=== PATIENT | female | born 1965 | race Caucasian/White ===

== ENCOUNTER 2021-01-04 09:02 | Day surgery (SDC) | payer OTHER ==
[2020-12-31 14:21] VITALS: BMI 31.1
[~2021-01-04 09:02] MED LIST: DEXAMETHASONE SOD PHOSPHATE 4 MG/ML 1 ML VIAL IV ONE; HYDROmorphone 0.5 MG/0.5 ML SYRINGE IVP PRN; ONDANSETRON 4 MG/2 ML VIAL IVP ONE
[2021-01-04 09:27] VITALS: RESP 16; TEMP 98.7
[2021-01-04] MEDS: LACTATED RINGERS 1,000 ML IV SCH ×2 (09:35→10:14)
[2021-01-04] MEDS ORDERED: MIDAZOLAM 2 MG/2 ML VIAL IVP ONE (10:09)
[2021-01-04] MEDS ORDERED: LIDOCAINE 1% INJ 10MG/ML (20 ML MDV) ONE (10:17)
[2021-01-04] MEDS ORDERED: PROPOFOL 10 MG/ML 20 ML VIAL IV ONE (10:17)
--- NOTE | 2021-01-04 10:20 | P.GSHP ---
History of Present Illness H&P Date: 01/04/21 Chief Complaint: Positive cologuard 55-year-old female here today for colonoscopy. She has not had 1 previously. Recent stool cologuard test positive. Family history of colon cancer in a grandparent. Doses a small amount of bright red blood with wiping occasionally that she thinks is related to hemorrhoids. Past Medical History Past Medical History: GERD/Reflux Additional Past Medical History / Comment(s): seasonal allergies. pos. cologard. anticardiolipin antibody syndrome during was placed on blood thinners during History of Any Multi-Drug Resistant Organisms: None Reported Past Surgical History: Adenoidectomy, Tonsillectomy, Uterine Ablation Additional Past Surgical History / Comment(s): otoplasty,oral surgery Past Anesthesia/Blood Transfusion Reactions: Family History of Problems w/ Anesthesia, Motion Sickness Additional Past Anesthesia/Blood Transfusion Reaction / Comment(s): mother ponv Smoking Status: Current every day smoker Medications and Allergies Home Medications Medication Instructions Recorded Confirmed Type Albuterol Inhaler [Ventolin Hfa 1 puff INHALATION DAILY PRN 12/31/20 01/04/21 History Inhaler] Albuterol Nebulized [Ventolin 2.5 mg INHALATION BID PRN 12/31/20 01/04/21 History Nebulized] Cetirizine HCl [Zyrtec] 10 mg PO DAILY 12/31/20 01/04/21 History Lansoprazole [Prevacid] 30 mg PO DAILY 12/31/20 01/04/21 History Omeprazole 20 mg PO DAILY 12/31/20 01/04/21 History Allergies Allergy/AdvReac Type Severity Reaction Status Date / Time diazepam [From Valium] Allergy Anaphylaxis Verified 01/04/21 09:20 moxifloxacin [From Avelox] Allergy Anaphylaxis Verified 01/04/21 09:20 erythromycin base AdvReac Diarrhea Verified 01/04/21 09:20 Surgical - Exam Vital Signs Temp Pulse Resp BP Pulse Ox 98.7 F 98 16 120/67 94 L 01/04/21 09:25 01/04/21 09:25 01/04/21 09:25 01/04/21 09:25 01/04/21 09:25 Physical exam: General: Well-developed, well-nourished HEENT: Normocephalic, sclerae nonicteric Abdomen: Nontender, nondistended Extremities: No edema Neuro: Alert and oriented Assessment and Plan (1) Positive colorectal cancer screening using Cologuard test Narrative/Plan: Will proceed with colonoscopy Current Visit: Yes Status: Acute Code(s): R19.5 - OTHER FECAL ABNORMALITIES SNOMED Code(s): 891030752
--- NOTE | 2021-01-04 10:47 | P.PCN ---
Date of Procedure: 01/04/21 Procedure(s) Performed: PREOPERATIVE DIAGNOSIS: Positive cologuard POSTOPERATIVE DIAGNOSIS: Rectal polyp 2 PROCEDURE: Colonoscopy with snare polypectomy ANESTHESIA: MAC SURGEON: Lokesh Miranda M.D. SPECIMENS: Rectal polyp 2 ENDOSCOPIC PROCEDURE: The patient was placed on the endoscopy table in the left decubitus position. The Olympus colonoscope was inserted into the anus and passed under direct visualization to the base of the cecum. The appendiceal orifice was visualized. From that point the scope was slowly withdrawn inspecting all surfaces carefully. There were no neoplastic inflammatory or polypoid lesions throughout the cecum, ascending, transverse, descending, and sigmoid colon. In the rectum 2 small polyps were seen both removed using the snare with cautery technique. The larger polyp was more distal approximately 3- 4 cm from the dentate line. The smaller polyp was at 10 cm. No diverticulosis was seen. Digital rectal examination was normal. The patient was taken to the recovery room in stable condition per anesthesia guidelines. RECOMMENDATIONS: Await biopsy results. Anticipate follow-up colonoscopy 3-5 years.
[2021-01-04 11:11] VITALS: BP 104/75; PULSE 95
== END 2021-01-04 11:35 | disposition home or self-care (01) ==
LOC: ORWHC2ENDO 09:02
PROVIDERS: ATTEND Surgery
DX: D12.8 Benign neoplasm of rectum (principal); K21.9 Gastro-esophageal reflux disease without esophagitis; Z80.0 Family history of malignant neoplasm of digestive organs; D68.61 Antiphospholipid syndrome; Z98.890 Other specified postprocedural states; F17.210 Nicotine dependence, cigarettes, uncomplicated; Z79.899 Other long term (current) drug therapy; Z88.1 Allergy status to other antibiotic agents; Z88.8 Allergy status to other drugs, medicaments and biological substances; R00.2 Palpitations; J44.9 Chronic obstructive pulmonary disease, unspecified
CPT/HCPCS: 81025; 88305; 45385; J2250; J2405; J2001; J2704

== ENCOUNTER → 2021-06-17 | Outpatient (CLI) | payer OTHER ==
--- NOTE | 2021-06-17 10:44 | XR ---
EXAMINATION TYPE: XR chest 2V DATE OF EXAM: 06/17/2021 COMPARISON: NONE HISTORY: Cough for years. Tobacco use. TECHNIQUE: Frontal and lateral views of the chest are obtained. FINDINGS: There is no focal air space opacity, pleural effusion, or pneumothorax seen. The cardiac silhouette size is within normal limits. The osseous structures are intact. IMPRESSION: No acute process.
--- NOTE | 2021-06-21 14:04 | MM ---
Reason for exam: screening (asymptomatic). History: Patient is postmenopausal. Family history of breast cancer in mother at age 63. Took hormonal contraceptives for 8 years. Physical Findings: A clinical breast exam by your physician is recommended on an annual basis and results should be correlated with mammographic findings. MG 3D Screening Mammo W/Cad Bilateral CC and MLO view(s) were taken. No prior studies available for comparison. The breast tissue is heterogeneously dense. This may lower the sensitivity of mammography. Finding: There is a 7 mm obscured oval mass located 7 cm from the nipple in the outer quadrant, middle position of the left breast MLO 23/. ASSESSMENT: Incomplete: need additional imaging evaluation, BI-RAD 0 RECOMMENDATION: Special view mammogram and ultrasound of the left breast. [facility] will attempt to contact patient to return for supplemental views and ultrasound.
== END | disposition home or self-care (01) ==
LOC: RADMAMWWP 09:50
PROVIDERS: ATTEND Family Medicine
DX: Z12.31 Encounter for screening mammogram for malignant neoplasm of breast (principal); R05.9 Cough, unspecified; Z78.0 Asymptomatic menopausal state; Z80.3 Family history of malignant neoplasm of breast; Z72.0 Tobacco use
CPT/HCPCS: 71046; 77063; 77067

== ENCOUNTER → 2021-06-24 | Outpatient (CLI) | payer OTHER ==
--- NOTE | 2021-06-24 14:33 | MM ---
Reason for exam: additional evaluation requested from abnormal screening. Last mammogram was performed less than 1 month ago. History: Patient is postmenopausal. Family history of breast cancer in mother at age 63. Took hormonal contraceptives for 8 years. Physical Findings: A clinical breast exam by your physician is recommended on an annual basis and results should be correlated with mammographic findings. MG 3D Work Up W/Cad LT Spot compression CC, spot compression MLO, ML, and XCCL view(s) were taken of the left breast. Prior study comparison: June 17, 2021, bilateral MG 3d screening mammo w/cad. Finding: There is a 8 x 4 mm obscured oval mass located 6 cm from the nipple in the slight upper outer quadrant of the left breast, persists on additional views. ASSESSMENT: Incomplete: need additional imaging evaluation, BI-RAD 0 RECOMMENDATION: Ultrasound of the left breast.
--- NOTE | 2021-06-24 14:35 | USB ---
Reason for exam: additional evaluation requested from abnormal screening. History: Patient is postmenopausal. Family history of breast cancer in mother at age 63. Took hormonal contraceptives for 8 years. Physical Findings: A clinical breast exam by your physician is recommended on an annual basis and results should be correlated with mammographic findings. US Breast Workup Limited LT Technologist: Anali Vang Left limited breast ultrasound including focal area of concern, retroareolar and axilla demonstrates three oval lesions too small to characterize measuring 0.5 x 0.5 x 0.3cm at 2 o'clock, 4cm from nipple, 0.5 x 0.5 x 0.3cm at 3 o'clock, 6cm from nipple and 0.4 x 0.4 x 0.4cm at 3 o'clock, 6cm from nipple. ASSESSMENT: Probably benign, BI-RAD 3 RECOMMENDATION: Follow-up diagnostic mammogram and ultrasound of the left breast in 6 months.
== END | disposition home or self-care (01) ==
LOC: RADMAMWWP 07:00
PROVIDERS: ATTEND Family Medicine
DX: R92.8 Other abnormal and inconclusive findings on diagnostic imaging of breast (principal); Z78.0 Asymptomatic menopausal state; Z80.3 Family history of malignant neoplasm of breast
CPT/HCPCS: 77061; 77065

== ENCOUNTER → 2021-12-30 | Outpatient (CLI) | payer OTHER ==
--- NOTE | 2021-12-30 13:59 | USB ---
Reason for Exam: Follow-up at short interval from prior study. Patient History: Menarche at age 14. First Full-Term at age 30. Postmenopausal. Patient used Hormonal Contraceptives for 8 years. Mother had breast cancer, age 63. Risk Values: Amparo 5 year model risk: 2.2%. NCI Lifetime model risk: 15.8%. Technique: Method: Targeted. Prior Study Comparison: 06/17/2021 Bilateral Screening Mammogram, [facility]. 06/24/2021 Left Diagnostic Mammogram, [facility]. Findings: The upper outer quadrant of the left breast, the axilla of the left breast and the retroareolar of the left breast were scanned. There are couple of tiny stable cysts noted measuring less than 3 mm each and are considered benign. No solid masses are seen.. Overall Assessment: Benign, BI-RAD 2 Management: Screening Mammogram of both breasts in 6 months. A clinical breast exam by your physician is recommended on an annual basis and results should be correlated with mammographic findings. Electronically signed and approved by: Sven Rojas M.D. Radiologis
--- NOTE | 2022-01-02 10:44 | MM ---
Reason for Exam: Follow-up at short interval from prior study. Last screening mammogram was performed 6 month(s) ago. Patient History: Menarche at age 14. First Full-Term at age 30. Postmenopausal. Patient used Hormonal Contraceptives for 8 years. Mother had breast cancer, age 63. Risk Values: Amparo 5 year model risk: 2.2%. NCI Lifetime model risk: 15.8%. Prior Study Comparison: 06/17/2021 Bilateral Screening Mammogram, [facility]. 06/24/2021 Left Diagnostic Mammogram, [facility]. Tissue Density: Left: The breast tissue is heterogeneously dense. This may lower the sensitivity of mammography. Findings: Analyzed By CAD. No evidence for suspicious cluster of microcalcifications or mass lesion. Follow-up ultrasound is advised. Overall Assessment: Incomplete: need additional imaging evaluation, BI-RAD 0 Management: Diagnostic Breast Ultrasound of the left breast. A clinical breast exam by your physician is recommended on an annual basis and results should be correlated with mammographic findings. This exam should not preclude additional follow-up of suspicious palpable abnormalities. Results were given to the patient verbally at the time of exam. Electronically signed and approved by: Sven Rojas M.D. Radiologis
== END | disposition home or self-care (01) ==
LOC: RADMAMWWP 13:12
PROVIDERS: ATTEND Family Medicine
DX: R92.8 Other abnormal and inconclusive findings on diagnostic imaging of breast (principal); Z78.0 Asymptomatic menopausal state; Z80.3 Family history of malignant neoplasm of breast
CPT/HCPCS: 77061; 77065

== ENCOUNTER → 2022-06-30 | Outpatient (CLI) | payer OTHER ==
--- NOTE | 2022-07-03 16:55 | MM ---
Reason for Exam: Screening (asymptomatic). Last screening mammogram was performed 12 month(s) ago. Patient History: Menarche at age 14. First Full-Term at age 30. Postmenopausal. Patient used Hormonal Contraceptives for 8 years. Mother had breast cancer, age 63. Risk Values: Amparo 5 year model risk: 2.2%. NCI Lifetime model risk: 15.8%. Prior Study Comparison: 06/17/2021 Bilateral Screening Mammogram, [facility]. 06/24/2021 Left Diagnostic Mammogram, [facility]. 12/30/2021 Left MG 3D diag mammo w/cad LT, [facility]. Tissue Density: The breast tissue is heterogeneously dense. This may lower the sensitivity of mammography. Findings: Analyzed By CAD. Pattern is stable. Stable distortion is in the upper outer quadrants bilaterally. No suspicious groups of microcalcifications, spiculated or lobular masses, architectural distortion or other secondary signs of malignancy are mammographically apparent. Overall Assessment: Benign, BI-RAD 2 Management: Screening Mammogram of both breasts in 1 year. A negative mammogram report should not preclude additional follow up of suspicious palpable abnormalities. Patient should continue monthly self breast exam. A clinical breast exam by your physician is recommended on an annual basis and results should be correlated with mammographic findings. Electronically signed and approved by: Tj Estevez D.O. Radiologis
== END | disposition home or self-care (01) ==
LOC: RADMAMWWP 08:51
PROVIDERS: ATTEND Family Medicine
DX: Z12.31 Encounter for screening mammogram for malignant neoplasm of breast (principal); Z78.0 Asymptomatic menopausal state; Z80.3 Family history of malignant neoplasm of breast
CPT/HCPCS: 77063; 77067

== ENCOUNTER → 2024-04-04 | Outpatient (CLI) | payer OTHER ==
--- NOTE | 2024-04-04 13:09 | XR ---
EXAMINATION TYPE: XR chest 2V DATE OF EXAM: 04/04/2024 12:57 PM COMPARISON: 06/18/2019 CLINICAL INDICATION: Female, 58 years old with history of R05.3 CHR COUGH, TECHNIQUE: XR chest 2V view(s) obtained. FINDINGS: The heart size is normal. The pulmonary vasculature is normal. The lungs are clear. IMPRESSION: 1. No acute pulmonary process. [facility], , 04/04/2024 1:06 PM
--- NOTE | 2024-04-07 07:48 | MM ---
Reason for Exam: Screening (asymptomatic). Last mammogram was performed 1 year(s) and 10 month(s) ago. Patient History: Menarche at age 14. First Full-Term at age 30. Postmenopausal. Patient used Hormonal Contraceptives for 8 years. Mother had breast cancer, age 63. Risk Values: Amparo 5 year model risk: 2.4%. NCI Lifetime model risk: 15.2%. Prior Study Comparison: 06/24/2021 Left Diagnostic Mammogram, [facility]. 12/30/2021 Left MG 3D diag mammo w/cad LT, [facility]. 06/30/2022 Bilateral MG 3D screening mammo w/cad, [facility]. Tissue Density: There are scattered areas of fibroglandular density. Findings: Analyzed By CAD. Right breast: There is no suspicious group of microcalcifications or new suspicious mass. Left breast: There is no suspicious group of microcalcifications or new suspicious mass. Overall Assessment: Negative, BI-RAD 1 Management: Screening Mammogram of both breasts in [address] [facility] will attempt to contact patient to return for supplemental views and ultrasound if indicated. Patient should continue monthly self-breast exams. A clinical breast exam by your physician is recommended on an annual basis. This exam should not preclude additional follow-up of suspicious palpable abnormalities. Note on Amparo scores and lifetime risk: 1. A Amparo score greater than 3% is considered moderate risk. If this is the case, consider specialist referral to assess eligibility for a risk reducing agent. 2. If overall lifetime risk for the development of breast cancer is 20% or higher, the patient may qualify for future screening with alternating mammogram and breast MRI. [facility], , 04/07/2024 7:45 AM. Electronically signed and approved by: Osmin Armstrong DO
== END | disposition home or self-care (01) ==
LOC: RADMAMWWP 12:18
PROVIDERS: ATTEND Family Medicine
DX: Z12.31 Encounter for screening mammogram for malignant neoplasm of breast (principal); R05.3 Chronic cough; Z78.0 Asymptomatic menopausal state; Z80.3 Family history of malignant neoplasm of breast; R92.323 Mammographic fibroglandular density, bilateral breasts
CPT/HCPCS: 71046; 77063; 77067